=== PATIENT | male | born 1935 | race Caucasian/White ===

== ENCOUNTER 2025-02-04 19:45 | Emergency (ER) | payer BC, SELFPAY ==
[2025-02-04 19:53] VITALS: BP 161/84
[2025-02-04 20:12] LABS: % Basophils 0.4 % (0-2); % Eosinophils 1.9 % (0-6); % Immature Granulocytes 0.4 % (0-0.5); % Lymphocytes 15.4 % (20.5-51.1); % Monocytes 5.8 % (1.7-9.3); % Neutrophils 76.1 % (42.2-75.2); Absolute Eosinophils 0.1 10^3/uL (0-0.7); Absolute Lymphocytes 0.8 10^3/uL (1.2-3.4); Absolute Monocytes 0.3 10^3/uL (0.1-0.6); Absolute Neutrophils 4.1 10^3/uL (1.4-6.5); Hematocrit 47.9 % (39.0-52.0); Hemoglobin 16.7 g/dL (13.0-18.0); Mean Corp Hgb Conc. 34.9 g/dL (33.0-37.0); Mean Corpuscular Hgb 32.2 pg (27.0-31.0); Mean Corpuscular Volume 92.3 fL (80.0-94.0); Nucleated Red Blood Cells % 0 % (-); Platelet Count 133 10^3/uL (130-400); Red Blood Cell Count 5.19 10^6/uL (4.70-6.10); Red Cell Dist. Width 12.9 % (11.5-14.5); White Blood Cell Count 5.3 10^3/uL (4.8-10.8)
[2025-02-04 20:36] LABS: ALT (SGPT) 18 U/L (0-50); AST (SGOT) 24 U/L (17-59); Albumin 5.1 g/dl (3.5-5.0); Alkaline Phosphatase 64 U/L (38-126); Blood Urea Nitrogen 20 mg/dl (9-20); Calcium 10.1 mg/dl (8.4-10.2); Carbon Dioxide 28 mmol/L (22-30); Chloride 101 mmol/L (98-107); Glucose 160 mg/dl (70-99); Potassium 4.4 mmol/L (3.5-5.1); Sodium 142 mmol/L (135-145); Total Bilirubin 2.2 mg/dl (0.2-1.3); Total Protein 7.7 g/dl (6.3-8.2); eGFR > 60.00
[2025-02-04 20:37] LABS: NT-proBNP 778 pg/ml; Troponin I 0.013 ng/ml
[2025-02-04 21:16] VITALS: BP 131/73
[2025-02-04 22:00] VITALS: BP 123/72
--- NOTE | 2025-02-04 22:37 | ED.GENMED ---
History of Present Illness
General
Chief Complaint: Chest Pain
Source: patient
Exam Limitations: none
Time Seen by Provider: 02/04/25 22:36
Nursing documentation reviewed up to this point in time: agreed with
History of Present Illness
History of Present Illness:
Pleasant 89-year-old male presents to the emergency department with substernal nonradiating chest pain that began approximately 2 PM this afternoon and has since resolved. He states that pain was mild in comparison. He has had a history of CABG
surgery 31 years ago in [facility]. Patient also is diabetic. He is in town visiting his sons who live locally. Patient denies any current chest pain. 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 His daughter in
law has seen Dr. Cohn and prefers to see her group.
Review of Systems
Review of Systems
Allergies reviewed?: Yes
All Other Systems: ROS reviewed and negative except as documented in HPI and ROS
Constitutional: Reports no symptoms
EENT: Reports no symptoms
Respiratory: Reports no symptoms
Cardiac: Reports chest pain
ABD/GI: Reports no symptoms
: Reports no symptoms
Musculoskeletal: Reports no symptoms
Skin: Reports no symptoms
Neurological: Reports no symptoms
Endocrine: Reports no symptoms
Hematologic/Lymphatic: Reports no symptoms
Psychiatric: Reports no symptoms
Phy Exam
General Physical Exam
General Presentation: well appearing and no apparent distress
General Skin: warm and dry
General Habitus: normal
General Mental: alert
General Hydration: appears well hydrated
ENT Exam
ENT Exam: EOMI, pharynx normal, neck supple and normocephalic
Eye Exam
Eye Exam: PERRL, cornea clear and conjunctiva normal
Cardiovascular Exam
Cardiovascular Exam: regular rate/rhythm, no edema, no murmur and normal peripheral pulses
Pulmonary Exam
Pulmonary Exam: lungs clear, no respiratory distress, no rales, no crackles, no rhonchi, no stridor, no wheezing and no cough
Gastrointestinal Exam
Gastrointestinal Exam: normal bowel sounds, non tender, soft, no organomegaly, no pulsatile mass and non distended
Neurological Exam
Neurological Exam: alert, oriented x3, no motor deficits and speech normal
Musculoskeletal Exam
Musculoskeletal Exam: full ROM and no edema
Skin Exam
Skin Exam: normal color, warm/dry, no rash and no petechia
Psychiatric Exam
Psychiatric Exam: normal mood/affect
Course
Orders/Labs/Results
Orders:
Orders
02/04/25 19:46
Electrocardiogram (*1) Urgent
Reason for Study: Other
Other Reason for Exam: Respiratory Distress
Cardiac Monitoring- Treatment ONCE
EKG- Treatment ONCE
IV Insert/Care/Rem.- Treatment PRN
CR Chest - 2 Views Urgent
Comment:
Reason For Exam: respiratory distress
O2 Therapy [RESP] Urgent
Titrate/Wean O2 to maintain O2 sat greater than (%): 93
Special Instructions: TO MAINTAIN CONTINUOUS O2 SATS >/= 93%
Pulse Ox/cont/shift [RESP] Urgent
Quantity: 1
Special Instructions: continuous pulse ox
02/04/25 20:06
Complete Blood Count/With Diff Urgent
Comprehensive Metabolic Panel Urgent
NT-proBNP Urgent
Troponin I Urgent
02/04/25 22:56
Electrocardiogram (*1) Urgent
Reason for Study: Chest Pain
EKG- Treatment ONCE
Troponin I Urgent
Abnormal Lab Results
02/04/25
20:06
MCH 32.2 H pg
(27.0-31.0)
MPV 12.0 H fL
(7.4-10.4)
Absolute Lymphs (auto) 0.8 L 10^3/uL
(1.2-3.4)
Neutrophils % 76.1 H %
(42.2-75.2)
Lymphocytes % 15.4 L %
(20.5-51.1)
Glucose 160 H mg/dl
(70-99)
Total Bilirubin 2.2 H mg/dl
(0.2-1.3)
Albumin 5.1 H g/dl
(3.5-5.0)
02/04/25 20:06
02/04/25 20:06
Vital Signs
Initial and Last Documented VS:
Initial Vital Signs
Temp Pulse Resp BP Pulse Ox
97.9 F 79 16 161/84 97
02/04/25 19:53 02/04/25 19:53 02/04/25 19:53 02/04/25 19:53 02/04/25 19:53
Last Documented Vital Signs
Temp Pulse Resp BP Pulse Ox
97.9 F 77 21 123/72 98
02/04/25 19:53 02/04/25 22:38 02/04/25 22:38 02/04/25 22:00 02/04/25 22:38
*Radiology
Radiology exam reviewed: radiology read reviewed
*Pulse Oximetry
Patient hypoxic: no
*EKG
EKG Intrepretation Date: 02/04/25
Interpretation: normal
Comparison EKG: no comparison EKG present
Heart Rate: 81
Rate: normal
Rhythm: PAC's
[place]: left axis deviation
Interval: first degree heart block
Ischemia: no ischemia
*Desktop Support Associate Interpretation
Rate: normal
Interpretation: normal
Heart Rate: 80
Rhythm: sinus
*Critical Care Note
Total Time (30-74mins, 75-104mins- exclusive of procedures): Not Applicable
Update Note
Update Note:
Diagnostic Imaging Report
SignedOrder #:[id number]
Exams: CR Chest - 2 Views
CPT: 39435
PROCEDURE: CR Chest - 2 Views
CLINICAL INDICATION: Respiratory distress. Chest pressure.
Sitting AP and lateral views of the chest were obtained. There are no prior radiographic examinations of the chest available for comparison.
FINDINGS:
There is evidence for a previous midline sternotomy and coronary artery bypass graft surgery. The cardiac silhouette is mildly to moderately enlarged. There are mildly increased vascular interstitial markings throughout the lungs suggesting mild
interstitial cardiogenic pulmonary edema.
The trachea is mildly deviated to the right. There is mild elevation of the left hemidiaphragm. There is no focal airspace opacity suspicious for pneumonia. There is a mild amount of ground-glass opacity in the left lower lung subpleural region
which is likely mild subsegmental atelectasis and scarring. There is no radiographic evidence for pleural effusion or pneumothorax.
The bones appear diffusely demineralized. There is a mild right convex curvature of the midthoracic spine. There is mild multilevel discogenic degenerative disease throughout the thoracic spine. 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
acromioclavicular joint. The right lateral sixth rib is shortened which could be congenital or secondary to a chronic healed fracture. There is a chronic healed fracture of the right anterolateral ninth rib which has healed with mild deformity.
There is no radiographic evidence for pneumoperitoneum or abnormal bowel dilatation in the upper abdomen.
IMPRESSION:
1. Mild interstitial cardiogenic pulmonary edema.
2. Mild to moderate cardiomegaly.
3. Previous CABG surgery.
4. Mild elevation of the left hemidiaphragm.
Electronically signed by Reji Cazares MD, 02/04/2025 10:17 PM
ED Attending Note
-
Portions of this chart may have been created with voice recognition software.� Occasional wrong word or��sound alike� substitutions may have occurred due to the inherent limitations of voice recognition software.
Discharge Plan
Departure
Condition: Good
Discharge Problem:
Chest pain
Instructions: Chest Pain DCA Follow Up, BLOOD PRESSURE
Referrals:
NONE,* [Family Provider] -
Interventions
Interventions:
*Risk Screen - Suicide Last Done: 02/04/25 19:53
*General Assessment Last Done: 02/04/25 19:53
*ED COVID-19 Vaccine History Last Done: 02/04/25 19:53
ED- Cardiac Assessment Last Done: 02/04/25 21:19
Discharge Date and Time
Print Language: HUNGARIAN
[2025-02-04 23:00] VITALS: BP 121/67
[2025-02-04 23:36] LABS: Troponin I 0.015 ng/ml
[2025-02-05] VITALS: BP 113/55
== END 2025-02-05 00:23 | disposition home or self-care (01) ==
LOC: EMR 19:45
PROVIDERS: Emergency Medicine; EMERGENCY PHYSICIAN Student in an Organized Health Care Education/Training Program
DX: R07.89 Other chest pain (principal); E11.9 Type 2 diabetes mellitus without complications; Z95.1 Presence of aortocoronary bypass graft
CPT/HCPCS: 99283; 71046; 80053; 83880; 84484; 85025; 93005